=== PATIENT | male | born 1965 | race Caucasian/White ===

== ENCOUNTER 2018-09-11 09:51 | Emergency (ER) | payer SELFPAY ==
[2018-09-11 10:13] VITALS: BP 157/90
[2018-09-11] MEDS ORDERED: CLINDAMYCIN HCL 150 MG CAPSULE PO ONE (10:23)
[2018-09-11] MEDS ORDERED: HYDROCODONE/ACETAMINOPHEN 5-325 MG TABLET PO ONE (10:23)
--- NOTE | 2018-09-11 10:30 | ER Document Report ---
ED General - General Chief Complaint: Abscess Stated Complaint: POSSIBLE ABCSESS IN MOUTH Time Seen by Provider: 09/11/18 10:23 Information source: Patient Notes: 52-year-old male with no past medical history he started to have some dental pain around 2 days ago with the onset of some facial swelling to the left lateral lower face. He went to the dental office today and they told him to come here to receive antibiotics and pain medications. No dentist was there at that time but he was told this by the dental hygienist. Patient has had no fevers this morning. He denies any difficulty breathing or swallowing. Patient denies any medical history such as diabetes. TRAVEL OUTSIDE OF THE [place] IN LAST 30 DAYS: No - HPI Onset: Other - See above Onset/Duration: Gradual Quality of pain: Achy Severity: Mild Pain Level: 1 Associated symptoms: Other Exacerbated by: Denies Relieved by: Denies Similar symptoms previously: No Recently seen / treated by doctor: No - Related Data Allergies/Adverse Reactions: No Known Allergies Allergy (Unverified 09/11/18 10:00) Past Medical History - Social History Smoking Status: Current Every Day Smoker Family History: Reviewed & Not Pertinent Patient has suicidal ideation: No Patient has homicidal ideation: No Renal/ Medical History: Denies: Hx Peritoneal Dialysis Physical Exam - Vital signs Vitals: Temp Pulse Resp BP Pulse Ox 98.2 F 78 16 157/90 H 96 09/11/18 10:12 09/11/18 10:12 09/11/18 10:12 09/11/18 10:12 09/11/18 10:12 Notes: Reviewed vital signs and nursing note as charted by RN. CONSTITUTIONAL: Alert and oriented and responds appropriately to questions. Well-appearing; well-nourished HEAD: Normocephalic; atraumatic EYES: PERRL; Conjunctivae clear, sclerae non-icteric ENT: Patient has some swelling to the left lateral aspect of his lower jaw without any erythema, induration, or fluctuance. There is no extension into the mastoid region or the anterior neck region. Neck is soft and supple with full range of motion. Patient has no obvious drainable intraoral abscess. Obvious posterior left lower molar dental decay. No posterior pharyngeal lesions with a midline uvula NECK: See above SKIN: No acute lesions noted NEURO: CN 2-12 intact PSYCH: The patient's mood and manner are appropriate. Grooming and personal hygiene are appropriate. Course - Re-evaluation Re-evalutation: 09/11/18 10:32 Given the above history and physical examination I do not believe that the patient requires any imaging or laboratory work at this particular moment. I will provide pain medications, start the patient on antibiotics, provided a discount prescription, with strict return precautions and follow-up with the same dentist that the patient has already seen. - Vital Signs Vital signs: Temp Pulse Resp BP Pulse Ox 98.2 F 78 16 157/90 H 96 09/11/18 10:12 09/11/18 10:12 09/11/18 10:12 09/11/18 10:12 09/11/18 10:12 Discharge - Discharge Clinical Impression: Tooth abscess Condition: Good Disposition: HOME, SELF-CARE Additional Instructions: Come back immediately with increased pain, swelling, difficulty breathing or swallowing, any extension to the neck, or any other acute problems. Please follow-up with the dentist as we have discussed. Prescriptions: Clindamycin HCl [Cleocin 300 mg Capsule] 300 mg PO QID 10 Days #40 capsule Hydrocodone/Acetaminophen [[place] 5-325 Tablet] 1 each PO Q6 #12 tablet
== END 2018-09-11 10:41 | disposition home or self-care (01) ==
LOC: ER 09:51
DX: K04.7 Periapical abscess without sinus (principal); K02.9 Dental caries, unspecified; K08.89 Other specified disorders of teeth and supporting structures; F17.200 Nicotine dependence, unspecified, uncomplicated
CPT/HCPCS: 99282